=== PATIENT | female | born 1990 | race Caucasian/White ===

== ENCOUNTER 2017-01-02 19:53 | Emergency (ER) | payer BC, OTHER ==
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
--- NOTE | 2017-01-02 22:16 | ED MAR SUMMARY ---
..... Medication Administration Record [facility] [address] [place] [id number] Patient: MARIE IGLESIAS Visit ID: [id number] 26y, F Weight: 81.6 kg Height/Length: 62 in BMI: 32.9 ALLERGIES: No Known Drug Allergy
--- NOTE | 2017-01-02 22:16 | ED MED RECONCILIATION SUMMARY ---
Patient: MARIE IGLESIAS Medication Reconciliation Report [facility] VisitID: [id number] [place] [address] 26y, F Registration Date/Time: 01/02/2017 Weight: 81.6 kg Height/Length: 62 in. BMI: 32.9 ALLERGIES: No Known Drug Allergy The patient's Home Medications are listed below: THE FOLLOWING MEDICATIONS NEED TO BE RECONCILED: Control Pills SUMAtriptan Succinate Oral The source(s) of the original Home Medication information: patient The following Medications were given to the patient in the Emergency Department: None. The following Medications were prescribed to the patient: Naproxen 500 mg tablets: take 1 orally every 12 hours as needed for pain. Dispense twenty (20). No refills. -- Johana Borrego A.R.N.P. Flexeril 10 mg: Take 1 orally every 8 hours as needed for muscle spasm. Dispense twenty (20). No refills. Substitution is permissible. -- Johana Borrego A.R.N.P.
--- NOTE | 2017-01-02 22:16 | ED MED RECONCILIATION SUMMARY ---
Patient: MARIE IGLESIAS Medication Reconciliation Report [facility] VisitID: [id number] [place] [address] 26y, F Registration Date/Time: 01/02/2017 Weight: 81.6 kg Height/Length: 62 in. BMI: 32.9 ALLERGIES: No Known Drug Allergy The patient's Home Medications are listed below: THE FOLLOWING MEDICATIONS NEED TO BE RECONCILED: Control Pills SUMAtriptan Succinate Oral The source(s) of the original Home Medication information: patient The following Medications were given to the patient in the Emergency Department: None. The following Medications were prescribed to the patient: Naproxen 500 mg tablets: take 1 orally every 12 hours as needed for pain. Dispense twenty (20). No refills. -- Johana Borrego A.R.N.P. Flexeril 10 mg: Take 1 orally every 8 hours as needed for muscle spasm. Dispense twenty (20). No refills. Substitution is permissible. -- Johana Borrego A.R.N.P.
--- NOTE | 2017-01-02 22:16 | ED MAR SUMMARY ---
..... Medication Administration Record [facility] [address] [place], [place] [id number] Patient: MARIE IGLESIAS Visit ID: [id number] 26y, F Weight: 81.6 kg Height/Length: 62 in BMI: 32.9 ALLERGIES: No Known Drug Allergy
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
== END 2017-01-02 21:10 | disposition home or self-care (01) ==
LOC: ED SRH 19:53
DX: M79.1 Myalgia (principal); V43.51XA Car driver injured in collision with sport utility vehicle in traffic accident, initial encounter; Y93.89 Activity, other specified; Y92.410 Unspecified street and highway as the place of occurrence of the external cause; Y99.8 Other external cause status